=== PATIENT | male | born 1975 | race Two or more races ===

== ENCOUNTER 2022-09-16 05:14 | Emergency (ER) | payer BC ==
[~2022-09-16] VITALS: Ht 172.7 cm; Wt 98.9 kg
[2022-09-16 05:31] VITALS: BP 123/83
== END 2022-09-16 07:55 | disposition left against medical advice (07) ==
LOC: ER 05:14
DX: Z53.21 Procedure and treatment not carried out due to patient leaving prior to being seen by health care provider (principal); F32.9 Major depressive disorder, single episode, unspecified; F90.9 Attention-deficit hyperactivity disorder, unspecified type; Z98.890 Other specified postprocedural states
CPT/HCPCS: 93005